=== PATIENT | male | born 1995 ===

== ENCOUNTER 2017-11-15 14:30 | Outpatient (RCR) | payer OTHER ==
[~2017-11-15 14:30] MED LIST: BUPR-474 PO; CLIN300C99 PO; DOXY-179 PO; HYDR-385 PO; HYDR-5517 PO; LACT1CAP9 PO; LISD60CA2 PO; MULT1CAP59 PO; OXYC-823 PO; [UNRECOGNIZED DRUG - CODE] PO
[2017-11-15 14:59] VITALS: BP 125/84
[2017-11-15 15:01] LABS: PLATELET COUNT, AUTOMATED 299 K/uL (150-450)
[2017-11-17] MEDS ORDERED: OXYC-374 PO (13:44)
[2017-11-17] MEDS ORDERED: CLIN300C99 PO (13:46)
[2017-11-17] MEDS ORDERED: PROM-110 PO (15:04)
== END 2017-11-22 10:28 | disposition home or self-care (01) ==
LOC: SPU 14:30
PROVIDERS: ATTEND Orthopaedic Surgery Hand Surgery
DX: M86.111 Other acute osteomyelitis, right shoulder (principal)
CPT/HCPCS: 36415; 82040; 82247; 82310; 82374; 82435; 82565; 82947; 84075; 84132; 84155; 84295; 84450; 84460; 84520; 85025; 85651; 86140

== ENCOUNTER 2017-11-17 02:18 | Day surgery (SDC) | payer OTHER ==
[~2017-11-17] VITALS: Ht 180.3 cm; Wt 79.8 kg
[2017-11-17] MEDS ORDERED: PROPOFOL EMUL(*) 10MG/ML 20 ML 20 ML ONE (09:52)
[2017-11-17] MEDS ORDERED: METOCLOPRAMIDE 10 MG/2 ML SDV ONE (09:52)
[2017-11-17] MEDS ORDERED: DEXAMETHASONE SOD 4 MG/ML VIAL ONE (09:52)
[2017-11-17] MEDS ORDERED: ONDANSETRON 4 MG/2 ML VIAL ONE (09:52)
[2017-11-17] MEDS ORDERED: LIDOCAINE MPF 1% 5 ML VIAL ONE (09:52)
[2017-11-17] MEDS ORDERED: fentaNYL CITR 100 MCG/2 ML AMP ONE ×2 (09:54→13:43)
[2017-11-17] MEDS ORDERED: CELECOXIB 200 MG CAP PO ONE (11:35)
[2017-11-17] MEDS ORDERED: LIDOCAINE/SOD BICARB 8.4% SYR ID ONE (11:35)
[2017-11-17] MEDS ORDERED: FAMOTIDINE 20 MG TAB PO ONE (11:35)
[2017-11-17] MEDS ORDERED: CLINDAMYCIN(*) 600 MG/NS 50 ML 50 ML IVPB ONE (11:35)
[2017-11-17] MEDS ORDERED: NORMOSOL R SOLN(*) 1000 ML BAG 1,000 ML IV PRN (11:35)
[2017-11-17] MEDS ORDERED: MIDAZOLAM 2 MG/2 ML VIAL IVP PRN (11:35)
[2017-11-17 11:56] VITALS: BP 123/87
[2017-11-17] MEDS ORDERED: ROPIVACAINE 0.2% 20 ML VIAL ONE (12:17)
[2017-11-17] MEDS ORDERED: KETOROLAC 30 MG/ML VIAL ONE (13:05)
[2017-11-17] MEDS ORDERED: OXYC-374 PO (13:44)
[2017-11-17] MEDS ORDERED: CLIN300C99 PO (13:46)
[2017-11-17] MEDS ORDERED: ACETAMINOPHEN(*)1000 MG/100 ML 100 ML IVPB ONE (14:19)
[2017-11-17 14:35] VITALS: BP 126/82
[2017-11-17] MEDS ORDERED: PROM-110 PO (15:04)
[2017-11-17 15:11] VITALS: BP 114/76
[2017-11-17 15:13] VITALS: BP 103/83
--- NOTE | 2017-11-17 20:46 | OPERATIVE REPORT 1 ---
EVENT DATE: November 17, 2017 SURGEON: Giovanni Tim MD ANESTHESIOLOGIST: Gonzales Rodriguez MD ANESTHESIA: General. SUPPLY AIDE: JUNG Sebastian PREOPERATIVE DIAGNOSIS Retained hardware, right clavicle, status post combined clavicle fracture with acromioclavicular joint separation, treated elsewhere, complicated by infection which I had treated on an on-call basis. [place] subsequently returned to [place] for hardware removal. He also wanted his scar revised. PROCEDURES PERFORMED Scar revision, right shoulder, with removal of hardware at clavicle. ESTIMATED BLOOD LOSS Minimal. INTRAVENOUS FLUIDS 1000 TOURNIQUET TIME None. SPECIMENS None. COMPLICATIONS None. IMPLANTS None. SUMMARY OF PROCEDURE The patient was brought into the operating room and placed on the OR table in the supine position. After attaining adequate general anesthesia, the right upper extremity was prepped and draped in the usual sterile fashion to include the shoulder. It was sealed off with iodine. I had previously marked the broadened incision and then excised it in its entirety. I then undermined the soft tissue flaps so that it would allow for a non-tension closure. We then made an incision in the periosteum and fascia to expose the plate. The screws were removed, and then the plate was unhooked from beneath the acromion. I did test his stability, and it seemed to be quite sound. The wound was irrigated, and then we also used a curette and a rongeur to clear out the holes at the plate site. The wound was irrigated one more time before closing fascia with a running 0 Vicryl suture, followed by repeat irrigation and closure of the subcutaneous and skin layers with 3-0 Vicryl and 4-0 Monocryl respectively. We did not use Steri-Strips because he appeared to have some type of ADHESIVE allergy. We did just use the running Monocryl suture and then applied a Dermabond coating since we would not be able to do a normal dressing. He was awakened and transferred to the recovery area in stable condition. WILLIAM
== END 2017-11-17 14:35 | disposition home or self-care (01) ==
LOC: OR 02:18
PROVIDERS: ATTEND Orthopaedic Surgery Hand Surgery
DX: Z47.2 Encounter for removal of internal fixation device (principal)
CPT/HCPCS: 20680; J0131; J1100; J1885; J2001; J2405; J2704; J2765; J2795; J3010; J3490